=== PATIENT | male | born 1945 | race Caucasian/White ===

== ENCOUNTER 2017-03-23 06:32 | Emergency (ER) | payer OTHER, BC ==
[~2017-03-23] VITALS: Ht 185.4 cm; Wt 108.0 kg
[~2017-03-23 06:32] MED LIST: ASPI325T PO; ATEN-102 PO; ATOR10TA PO; FLON0.053; GLIM2TAB PO; GLIM4 PO; KLOR20TA6 PO; MULT1TAB46
[2017-03-23 06:39] VITALS: BP 198/94; PULSE 87; RESP 14; TEMP 97.4; O2SAT 97
[2017-03-23 06:48] VITALS: BP 198/94; PULSE 87; RESP 16; TEMP 97.4; O2SAT 97
[2017-03-23] MEDS ORDERED: SODIUM CHLORIDE 0.9% FLUSH 10 ML FLUSH IVF PRN (07:45)
[2017-03-23] MEDS ORDERED: TETANUS/DIPHTHERIA TOXOID ADULT 0.5 ML VIAL IM ONE (07:45)
[2017-03-23] MEDS ORDERED: LIDOCAINE HCL 1% 50 ML VIAL INFIL ONE (07:45)
--- NOTE | 2017-03-23 07:56 | PD ---
HPI Chief Complaint: Laceration/Skin Injury Time Seen by Provider: 07:17 Travel History International Travel<30 days: No Contact w/Intl Traveler<30days: No Traveled to known affect area: No History of Present Illness HPI 71-year-old male patient with history of hypertension, diabetes, presents to the ER today because he states that he had gotten up to go to the restroom and turned around to sit on the toilet seat to quickly, became dizzy, and lost balance and caught himself with his foot but states that there is a crack on the toilet seat porcelain and he had cut his left foot on a crack. He denies any dizziness now, chest pains, shortness of breath, or any other symptoms. He states that it is not unusual for him to get dizzy intermittently sometimes. He states it happens and it lasted minute or so, especially when he does something quickly. He denies hitting his head or any other injuries. In addition, patient noted that he has a area of swelling next to the nail on the big left toe that started about 3 days ago. He states that is not very tender, and it got worse on its own and he is noticing a whitish area. Modifying Factors: None Associated Signs & Symptoms: Laceration to the foot, swelling next to the toe Risk Factors: None PFSH Past Medical History Depression: Yes Diabetes: Yes Patient Takes Glucophage: No Diminished Hearing: No Hypertension: Yes Kidney Stones: Yes Triglycerides - High: Yes Tetanus Vaccination: Unknown Influenza Vaccination: Yes Past Surgical History Tonsillectomy: Yes Social History Alcohol Use: Yes (rarely) Tobacco Use: Yes (1 pack a day) Substance Use: No Allergies-Medications (Allergen,Severity, Reaction): Coded Allergies: cephalexin (Verified Allergy, Mild, burning sensation in mouth, 03/23/17) Reported Meds & Prescriptions Reported Meds & Active Scripts Active Ibuprofen 600 Mg Tab 600 Mg PO Q6H PRN Bactrim DS (Sulfamethoxazole-Trimethoprim) 800-160 Mg Tab 1 Tab PO BID Review of Systems Except as stated in HPI: all other systems reviewed are Neg Physical Exam Narrative GENERAL: Well-developed elderly white male patient currently in no acute distress. Awake and oriented 3. SKIN: Focused skin assessment warm/dry. There is a 3 cm laceration on the lateral part of the left foot, U-shaped. There is also a notable paronychia on the medial part of the nail on the left first toe. Mild surrounding erythema. Mildly fluctuant. HEAD: Atraumatic. Normocephalic. EYES: Pupils equal and round. No scleral icterus. No injection or drainage. ENT: No nasal bleeding or discharge. Mucous membranes pink and moist. NECK: Trachea midline. No JVD. Supple. CARDIOVASCULAR: Regular rate and rhythm. No murmur appreciated. RESPIRATORY: No accessory muscle use. Clear to auscultation. Breath sounds equal bilaterally. GASTROINTESTINAL: Abdomen soft, non-tender, nondistended. Hepatic and splenic margins not palpable. MUSCULOSKELETAL: No obvious deformities. No clubbing. No cyanosis. No edema. NEUROLOGICAL: Awake and alert. No obvious cranial nerve deficits. Motor grossly within normal limits. Normal speech. PSYCHIATRIC: Appropriate mood and affect; insight and judgment normal. Data Data Last Documented VS Vital Signs Date Time Temp Pulse Resp B/P (MAP) Pulse Ox O2 Delivery O2 Flow Rate FiO2 03/23/17 06:48 97.4 87 16 198/94 (128) 97 Orders Orders Electrocardiogram (03/23/17 07:37) Ecg Monitoring (03/23/17 07:37) Iv Access Insert/Monitor (03/23/17 07:37) Oximetry (03/23/17 07:37) Sodium Chloride 0.9% Flush (Ns Flush) (03/23/17 07:45) Lidocaine 1% Inj (50 Ml) (Xylocaine 1% I (03/23/17 07:45) Tetanus/Diphtheria Tox Adult (Tetanus/Di (03/23/17 07:45) Lidocaine Pf 1% Inj (Xylocaine-Mpf 1% In (03/23/17 08:00) Ed Discharge Order (03/23/17 08:35) MDM Medical Decision Making Medical Screen Exam Complete: Yes Emergency Medical Condition: Yes Medical Record Reviewed: Yes Differential Diagnosis Left foot laceration and paronychia Narrative Course Tetanus has been updated in the ER. Patient apparently has had problems with dizziness intermittently with turning for years. He states that this is not new for him. Vital signs are stable in the ER. I have discussed briefly possibly getting lab work and EKG but the patient declines at this time stating that he feels like this is unnecessary, and this is a symptom he's had before. At this point, laceration was repaired in the ER. Wound care instructions are given. He will need to follow-up for suture removal in 10 days. Return for any signs of infection, and as needed. By mouth antibiotics given. The plan has been discussed with him and he states understanding. Procedures Procedure Narrative LACERATION LOCATION: Left foot LENGTH: 3 cm NUMBER OF STITCHES/MARIA L: 12 REPAIR: The area of the laceration was prepped with Betadine and sterilely draped. The laceration was infiltrated with 6 cc of 1% lidocaine. The wound was copiously irrigated and explored without evidence of foreign body, tendon injury or neurovascular injury. The wound was closed using 3. 0 nylon. This was a single layer repair. A sterile dressing was applied. The patient was advised to keep the dressing clean and dry. Patient tolerated the procedure well. I&D of the paronychia: The area of the paronychia was cleaned with iodine, and half a cc of lidocaine was placed. Small scalpel use to make a small incision over the paronychia with good pus drainage. Area was then covered with Band- Aid. Wound care instructions given. Diagnosis Primary Impression: Foot laceration Additional Impression: Paronychia of great toe of left foot Med/Other Pt SpecificInfo: Prescription(s) given Scripts Ibuprofen (Ibuprofen) 600 Mg Tab 600 MG PO Q6H Y for Pain/Inflammation, #20 TAB 0 Refills Prov: Shawnee Nj MD 03/23/17 Sulfamethoxazole-Trimethoprim (Bactrim DS) 800-160 Mg Tab 1 TAB PO BID for Infection, #14 TAB 0 Refills Prov: Shawnee Nj MD 03/23/17 Disposition: 01 DISCHARGE HOME Condition: Stable Shawnee Nj MD Mar 23, 2017 07:55
[2017-03-23] MEDS ORDERED: LIDOCAINE HCL 1% PF 30 ML VIAL INFIL ONE (08:00)
[2017-03-23] MEDS ORDERED: IBUP-232 PO (08:18)
[2017-03-23] MEDS ORDERED: BACT800T5 PO (08:18)
== END 2017-03-23 09:06 | disposition home or self-care (01) ==
LOC: PHED 06:32
DX: S91.312A Laceration without foreign body, left foot, initial encounter (principal); L03.032 Cellulitis of left toe; E11.9 Type 2 diabetes mellitus without complications; I10 Essential (primary) hypertension; W01.0XXA Fall on same level from slipping, tripping and stumbling without subsequent striking against object, initial encounter; Y92.002 Bathroom of unspecified non-institutional (private) residence as the place of occurrence of the external cause; Z72.0 Tobacco use; Z23 Encounter for immunization
CPT/HCPCS: 10060; 12002; 90471; 90714

== ENCOUNTER 2017-03-31 06:54 | Emergency (ER) | payer OTHER, BC ==
[~2017-03-31] VITALS: Ht 186.7 cm; Wt 107.0 kg
[~2017-03-31 06:54] MED LIST changes: -ASPI325T PO; -ATEN-102 PO; -ATOR10TA PO; +BACT800T5 PO; -FLON0.053; -GLIM2TAB PO; -GLIM4 PO; +IBUP-232 PO; -KLOR20TA6 PO; -MULT1TAB46
[2017-03-31 06:55] VITALS: BP 170/83; PULSE 75; RESP 16; TEMP 97.7; O2SAT 96
[2017-03-31] MEDS ORDERED: DOXY100C PO (07:15)
--- NOTE | 2017-03-31 07:17 | PD ---
HPI Chief Complaint: Wound/Suture/Staple Re-Check Time Seen by Provider: 07:09 Travel History International Travel<30 days: No Contact w/Intl Traveler<30days: No Traveled to known affect area: No History of Present Illness HPI Patient is a 71-year-old male presents emergency department for evaluation of left foot redness and reevaluation of left foot wound. He states he was on some antibiotics and is finished them, states the redness is about where it was when it first happened and has decreased significantly. Denies any discharge denies any swelling denies any wound opening. See previous documentation for further information on the nature of the injury. PFSH Past Medical History Depression: Yes Diabetes: Yes Patient Takes Glucophage: No Diminished Hearing: No Hypertension: Yes Kidney Stones: Yes Triglycerides - High: Yes Past Surgical History Tonsillectomy: Yes Social History Alcohol Use: Yes (rarely) Tobacco Use: Yes (1 pack a day) Substance Use: No Allergies-Medications (Allergen,Severity, Reaction): Coded Allergies: cephalexin (Verified Allergy, Mild, burning sensation in mouth, 03/31/17) Reported Meds & Prescriptions Reported Meds & Active Scripts Active Doxycycline Hyclate 100 Mg Cap 100 Mg PO BID Review of Systems Except as stated in HPI: all other systems reviewed are Neg Physical Exam Narrative GENERAL: Well-nourished, well-developed patient. SKIN: Focused skin assessment warm/dry. Laceration on the dorsum of the left foot with surrounding cellulitis and erythema, no fluctuance no induration. Euthermic to touch. Laceration is healing but is somewhat early for stitch removal. HEAD: Normocephalic. EYES: No scleral icterus. No injection or drainage. NECK: Supple, trachea midline. No JVD or lymphadenopathy. CARDIOVASCULAR: Regular rate and rhythm without murmurs, gallops, or rubs. RESPIRATORY: Breath sounds equal bilaterally. No accessory muscle use. GASTROINTESTINAL: Abdomen soft, non-tender, nondistended. MUSCULOSKELETAL: No cyanosis, or edema. BACK: Nontender without obvious deformity. No CVA tenderness. Data Data Last Documented VS Vital Signs Date Time Temp Pulse Resp B/P (MAP) Pulse Ox O2 Delivery O2 Flow Rate FiO2 03/31/17 06:55 97.7 75 16 170/83 (112) 96 Orders Orders Ed Discharge Order (03/31/17 07:17) [facility] Medical Decision Making Medical Screen Exam Complete: Yes Emergency Medical Condition: Yes Differential Diagnosis Encounter for wound check, mild cellulitis, abscess unlikely. Narrative Course Patient room in the emergency department, mild cellulitis were placed on antibiotics, somewhat early for stitch removal. Diagnosis Primary Impression: Visit for wound check Additional Instructions: Return to ER in 5 days for re-eval for suture removal. If you'd like to see me again come on tuesday between 4p and 10p. You may have to wait at this time. Come at 7am for least wait time (but you'll have to see one of my partners). Med/Other Pt SpecificInfo: Prescription(s) given Scripts Doxycycline Hyclate (Doxycycline Hyclate) 100 Mg Cap 100 MG PO BID for Infection, #20 CAP 0 Refills Prov: Tomas David MD 03/31/17 Disposition: 01 DISCHARGE HOME Condition: Stable Tomas David MD Mar 31, 2017 07:17
== END 2017-03-31 07:28 | disposition home or self-care (01) ==
LOC: PHED 06:54
DX: Z48.00 Encounter for change or removal of nonsurgical wound dressing (principal); E11.9 Type 2 diabetes mellitus without complications; I10 Essential (primary) hypertension; Z72.0 Tobacco use
CPT/HCPCS: 99281

== ENCOUNTER 2017-04-03 05:23 | Emergency (ER) | payer OTHER, MEDICARE ==
[~2017-04-03] VITALS: Ht 188 cm; Wt 104.5 kg
[~2017-04-03 05:23] MED LIST changes: -BACT800T5 PO; +DOXY100C PO; -IBUP-232 PO
--- NOTE | 2017-04-03 05:47 | PD ---
HPI Chief Complaint: Wound/Suture/Staple Re-Check Time Seen by Provider: 05:38 Travel History International Travel<30 days: No Contact w/Intl Traveler<30days: No Traveled to known affect area: No History of Present Illness HPI The patient is a 71-year-old male that has a distal based flap laceration on his left foot. He had stitches put in 12 days ago. His foot had some redness and he was treated with Bactrim DS and Keflex. He comes in today to have his sutures removed. He states he has been putting it in the shower but generally has been fairly clean. PFSH Past Medical History Depression: Yes Diabetes: Yes Diminished Hearing: No Hypertension: Yes Kidney Stones: Yes Triglycerides - High: Yes Past Surgical History Tonsillectomy: Yes Social History Alcohol Use: Yes (rarely) Tobacco Use: Yes (1 pack a day) Substance Use: No Allergies-Medications (Allergen,Severity, Reaction): Coded Allergies: cephalexin (Verified Allergy, Mild, burning sensation in mouth, 03/31/17) Reported Meds & Prescriptions Reported Meds & Active Scripts Active Doxycycline Hyclate 100 Mg Cap 100 Mg PO BID Review of Systems Except as stated in HPI: all other systems reviewed are Neg Physical Exam Narrative GENERAL: The patient is alert, oriented 3 in no apparent distress. SKIN: Focused skin assessment warm/dry. There is redness over the left foot but it is not warm and it is not tender. No pus is coming from the sutures. HEAD: Atraumatic. Normocephalic. EYES: Pupils equal and round. No scleral icterus. No injection or drainage. ENT: No nasal bleeding or discharge. Mucous membranes pink and moist. NECK: Trachea midline. No JVD. CARDIOVASCULAR: Regular rate and rhythm. No murmur appreciated. RESPIRATORY: No accessory muscle use. Clear to auscultation. Breath sounds equal bilaterally. GASTROINTESTINAL: Abdomen soft, non-tender, nondistended. Hepatic and splenic margins not palpable. MUSCULOSKELETAL: No obvious deformities. No clubbing. No cyanosis. No edema. NEUROLOGICAL: Awake and alert. No obvious cranial nerve deficits. Motor grossly within normal limits. Normal speech. PSYCHIATRIC: Appropriate mood and affect; insight and judgment normal. Data Data Orders Orders Remove Sutures (04/03/17 05:38) [facility] Medical Decision Making Medical Screen Exam Complete: Yes Emergency Medical Condition: Yes Medical Record Reviewed: Yes Differential Diagnosis Cellulitis left foot, healing laceration left foot, nonhealing laceration Narrative Course The left foot has questionable cellulitis because it is not tender and not hot and is not even warm. The redness is several centimeters away from the laceration. The laceration appears to be healing surprisingly well for a distal base flap laceration on the foot. The sutures will be removed today but the patient is told that the wound is not even near full strength and he needs to take care of it. He needs to keep a bandage over it, thick white sock over the bandage and not hit it or stress the skin because it could open up. Diagnosis Primary Impression: Visit for suture removal Additional Instructions: As we discussed, the wound is not even near full strength. He needs to elevate the foot, this helps a circulation. Wear a bandage over the laceration and a thick white Parker over the foot. Hopefully, this will protect it from any trauma. Any significant trauma may make the wound pop open. If you have any problems, please return to emergency department. Med/Other Pt SpecificInfo: No Change to Meds Disposition: 01 DISCHARGE HOME Condition: Stable Feliciano Spence MD Apr 03, 2017 05:47
[2017-04-03 05:55] VITALS: BP 176/100; PULSE 98; RESP 18; TEMP 97.7; O2SAT 98
== END 2017-04-03 06:22 | disposition home or self-care (01) ==
LOC: PHED 05:23
DX: Z48.02 Encounter for removal of sutures (principal)
CPT/HCPCS: 99281